=== PATIENT | male | born 1965 | race Caucasian/White ===

== ENCOUNTER 2021-11-11 00:12 | Day surgery (SDC) | payer BC, SELFPAY ==
[2021-09-28 14:06] VITALS: BMI 21.0
[2021-11-01 14:05] VITALS: BMI 20.5
[2021-11-11 07:56] VITALS: BP 115/64; PULSE 57; RESP 18; TEMP 36.1; O2SAT 99
[2021-11-11] MEDS: LACTATED RINGERS 1,000 ML 150 ML IV CONT (08:09)
--- NOTE | 2021-11-11 08:31 | P.CONGI_ITS ---
Assessment and Plan Assessment and plan (1) Encounter for screening colonoscopy: Code(s): Z12.11 - Encounter for screening for malignant neoplasm of colon Status: Acute Assessment and Plan: Patient presents today for screening colonoscopy. He denies any family history of colon cancer. Appears to be at average risk for colon polyps. GI Consult Note Consult date/time: 11/11/21 08:31 HPI: Aldo Shay is a 56 year old male Presents for screening colonoscopy. Patient's current weight appetite and bowel movements are normal. He denies abdominal pain. He has had no bleeding. Family history is noncontributory. Patient reports last colonoscopy was 15 years ago. Patient presents today for screening surveillance exam. Review of Systems Review of Systems: All systems reviewed & are unremarkable except as noted in HPI and below PMFSH Past Medical History Medical History Sensorineural hearing loss bilateral hearing aids Family History Family History Mother , 74 yrs old Lung cancer Sibling Skin cancer (melanoma) Father Malignant neoplasm of prostate Social History Social History (Updated 09/08/21 @ 15:15 by Marii Ortiz) Social History: Smoking status: Former smoker Tobacco type: cigarettes Second hand tobacco smoke exposure: No Alcohol intake: current Drinks per week: 6 Substance use: never Substance use type: does not use Living arrangements: with family Gender identity (if verbalized by the patient): Male Sexual Orientation (if Verbalized by the Patient): Straight or Heterosexual Spiritual care concerns: No Meds Home Medications and Allergies Home Medications Medication Instructions Recorded Confirmed Type No Home Medications 09/08/21 11/11/21 History Allergies Allergy/AdvReac Type Severity Reaction Status Date / Time Common Ragweed Allergy Mild NASAL Uncoded 11/11/21 07:49 CONGESTION Molds and Smuts Allergy Mild NASAL Uncoded 11/11/21 07:49 CONGESTION Vital Signs Vital Signs - 24 hr 11/11/21 07:56 Temperature 97 F L Pulse Rate 57 L Respiratory Rate 18 Blood Pressure 115/64 Pulse Oximetry 99 Exam Narrative: Physical exam reveals patient to be alert. Vital signs stable. HEENT exam is unremarkable. Patient is anicteric. Lungs are clear to auscultation and percussion. Heart is without murmur or extra sounds. A bdominal exam bowel sounds are present soft nontender with no organomegaly. Digital external rectal exam is normal.
--- NOTE | 2021-11-11 09:18 | P.PNAN_ITS ---
Anes - Initial Pre Proc Eval Procedure: Operation Date: 11/11/21 09:00 Proposed Procedures p Screening Colonoscopy - Aiden Robb MD Date/Time: 11/11/21 09:18 Surgeon: Aiden Robb MD Pre Op Diagnosis: family hx of colon ca, neoplasm screening Patient Data Age: 56 Gender: M Height: 1.83 m Weight: 67.1 kg Last Vital Signs Temp 97 F L 11/11/21 07:56 Pulse 57 L 11/11/21 07:56 Resp 18 11/11/21 07:56 BP 115/64 11/11/21 07:56 Pulse Ox 99 11/11/21 07:56 Allergies Allergy/AdvReac Type Severity Reaction Status Date / Time Common Ragweed Allergy Mild NASAL Uncoded 11/11/21 07:49 CONGESTION Molds and Smuts Allergy Mild NASAL Uncoded 11/11/21 07:49 CONGESTION Home Medications Medication Instructions Recorded Confirmed Type No Home Medications 09/08/21 11/11/21 History Patient hx anesthesia problems: none Family hx anesthesia problems: none Results Review: All pre-operative results and documents have been reviewed as part of the pre-operative evaluation. [facility] Past Medical History Medical History Sensorineural hearing loss bilateral hearing aids Family History Family History Mother , 74 yrs old Lung cancer Sibling Skin cancer (melanoma) Father Malignant neoplasm of prostate Social History Social History (Updated 09/08/21 @ 15:15 by Marii Ortiz) Social History: Smoking status: Former smoker Tobacco type: cigarettes Second hand tobacco smoke exposure: No Alcohol intake: current Drinks per week: 6 Substance use: never Substance use type: does not use Living arrangements: with family Gender identity (if verbalized by the patient): Male Sexual Orientation (if Verbalized by the Patient): Straight or Heterosexual Spiritual care concerns: No Anes - Eval Final PreProcedure Day of Procedure 11/11/21 09:18 Patient weight: normal Heart: regular rate and rhythm Lungs: clear to auscultation Airway: Mallampati scale class 1 Neurological: alert and oriented ASA classification: II Emergent: no Anesthetic plan: proceed Anesthesia type and monitoring: general Results Review: All pre-operative results and documents have been reviewed as part of the pre-operative evaluation. Informed Consent: The patient's anesthetic plan and its attendant risks and benefits were discussed with the patient/family/POA. Questions were solicited and answers provided to the satisfaction of the patient/family/POA.
--- NOTE | 2021-11-11 09:25 | WPDANESEFPP ---
Anes - Eval Final PreProcedure Day of Procedure 11/11/21 09:25 Patient weight: normal Heart: regular rate and rhythm Lungs: clear to auscultation Airway: Mallampati scale class 1 Neurological: alert and oriented Last oral intake: >/= 8 hours ASA classification: II Emergent: no Anesthetic plan: proceed Anesthesia type and monitoring: general GIVS and standard monitoring Results Review: All pre-operative results and documents have been reviewed as part of the pre-operative evaluation. Informed Consent: The patient's anesthetic plan and its attendant risks and benefits were discussed with the patient/family/POA. Questions were solicited and answers provided to the satisfaction of the patient/family/POA.
[2021-11-11 09:44] VITALS: BP 105/67; PULSE 51; RESP 13; O2SAT 100
[2021-11-11 09:54] VITALS: BP 108/68; PULSE 47; RESP 12; O2SAT 100
[2021-11-11 10:04] VITALS: BP 103/67; PULSE 54; RESP 15; O2SAT 100
== END 2021-11-11 10:08 | disposition home or self-care (01) ==
PROVIDERS: PCP Family Medicine; Visit Provider Internal Medicine Gastroenterology
PROC: 0DJD8ZZ Inspection of Lower Intestinal Tract, Via Natural or Artificial Opening Endoscopic (ICD-10-PCS; CPT 45378; principal; 2021-11-11 09:00)
DX: Z12.11 Encounter for screening for malignant neoplasm of colon (principal); K64.8 Other hemorrhoids; Z87.891 Personal history of nicotine dependence; Z83.71 Family history of colonic polyps; H90.3 Sensorineural hearing loss, bilateral
CPT/HCPCS: 45378; J2704; J7120